=== PATIENT | female | born 1965 | race Native Hawaiian/Other Pacific Islander ===

== ENCOUNTER 2020-11-08 11:47 | Emergency (ER) | payer OTHER ==
[~2020-11-08] VITALS: Ht 177.8 cm; Wt 102.1 kg
[~2020-11-08 11:47] MED LIST: BRINTELLIX5 MG PO; TRILEPTAL150 MG PO
[2020-11-08 12:03] VITALS: TEMP 97.1
[2020-11-08 12:26] LABS: PLATELET COUNT 171 K/uL (152-353)
[2020-11-08 12:31] LABS: POTASSIUM 3.9 mmol/L (3.6-5.2); SODIUM 135 mmol/L (136-145)
[2020-11-08 15:48] VITALS: BP 138/88
== END 2020-11-08 16:08 | disposition home or self-care (01) ==
LOC: ED 11:47
PROVIDERS: Family Medicine
DX: I50.9 Heart failure, unspecified (principal); J18.9 Pneumonia, unspecified organism; Z20.828 Contact with and (suspected) exposure to other viral communicable diseases
CPT/HCPCS: 36415; 80053; 81000; 83605; 83880; 84484; 85027; 87040; 87635; 93005; 96365; 96375; 99284; J0696; J1940; U0003

== ENCOUNTER 2021-04-14 17:52 | Outpatient (CLI) | payer OTHER ==
[2021-04-14 18:44] LABS: PLATELET COUNT 233 K/uL (152-353)
[2021-04-14 19:21] LABS: POTASSIUM 4.6 mmol/L (3.6-5.2)
== END 2021-04-14 19:17 | disposition home or self-care (01) ==
LOC: LAB 17:52
PROVIDERS: ATTEND Internal Medicine Infectious Disease
DX: T80.89XA Other complications following infusion, transfusion and therapeutic injection, initial encounter (principal)
CPT/HCPCS: 80048; 85027; 86140

== ENCOUNTER 2021-04-21 15:30 | Outpatient (CLI) | payer OTHER ==
[2021-04-21 15:47] LABS: PLATELET COUNT 171 K/uL (152-353)
[2021-04-21 15:49] LABS: POTASSIUM 4.2 mmol/L (3.6-5.2)
== END 2021-04-21 22:04 | disposition home or self-care (01) ==
LOC: LAB 15:30
PROVIDERS: ATTEND Internal Medicine Infectious Disease
DX: Z79.2 Long term (current) use of antibiotics (principal)
CPT/HCPCS: 80053; 85027; 86140

== ENCOUNTER 2021-04-29 18:20 | Outpatient (CLI) | payer OTHER ==
[2021-04-29 19:00] LABS: PLATELET COUNT 128 K/uL (152-353)
[2021-04-29 19:18] LABS: POTASSIUM 4.4 mmol/L (3.6-5.2)
== END 2021-04-29 20:56 | disposition home or self-care (01) ==
LOC: LAB 18:20
PROVIDERS: ATTEND Internal Medicine Infectious Disease
DX: L97.514 Non-pressure chronic ulcer of other part of right foot with necrosis of bone (principal); M86.9 Osteomyelitis, unspecified
CPT/HCPCS: 80053; 85027; 85652; 86140

== ENCOUNTER 2021-05-05 17:23 | Outpatient (CLI) | payer OTHER ==
[2021-05-05 17:35] LABS: PLATELET COUNT 151 K/uL (152-353)
[2021-05-05 18:02] LABS: POTASSIUM 4.3 mmol/L (3.6-5.2)
== END 2021-05-05 18:57 | disposition home or self-care (01) ==
LOC: LAB 17:23
PROVIDERS: ATTEND Internal Medicine Infectious Disease
DX: Z79.899 Other long term (current) drug therapy (principal); Z79.2 Long term (current) use of antibiotics
CPT/HCPCS: 80053; 85027; 85652; 86140

== ENCOUNTER 2021-05-12 10:12 | Outpatient (CLI) | payer OTHER ==
[2021-05-12 10:24] LABS: PLATELET COUNT 159 K/uL (152-353)
[2021-05-12 10:44] LABS: POTASSIUM 4.6 mmol/L (3.6-5.2)
== END 2021-05-12 22:16 | disposition home or self-care (01) ==
LOC: LAB 10:12
PROVIDERS: ATTEND Internal Medicine Infectious Disease
DX: Z79.899 Other long term (current) drug therapy (principal); Z79.2 Long term (current) use of antibiotics
CPT/HCPCS: 80053; 85027; 86140

== ENCOUNTER 2021-05-16 15:18 | Outpatient (CLI) | payer OTHER ==
[2021-05-16 15:28] LABS: PLATELET COUNT 172 K/uL (152-353)
[2021-05-16 15:35] LABS: POTASSIUM 3.8 mmol/L (3.6-5.2)
== END 2021-05-16 19:21 | disposition home or self-care (01) ==
LOC: LAB 15:18
PROVIDERS: ATTEND Podiatrist Foot & Ankle Surgery
DX: L02.415 Cutaneous abscess of right lower limb (principal)
CPT/HCPCS: 80053; 85027; 85652